=== PATIENT | female | born 1975 | race Two or more races ===

== ENCOUNTER 2016-09-07 00:37 | Outpatient (CLI) | payer SELFPAY ==
[2016-09-07 05:58] LABS: DAU SCREEN DISCLAIMER
[2016-09-07 06:15] LABS: HIV 1&2 ANTIBODY SCREEN Nonreactive (Nonreactive); HIV-1 p24 ANTIGEN Nonreactive (Nonreactive)
== END 2016-09-07 03:10 | disposition home or self-care (01) ==
LOC: LDOP 00:37
PROVIDERS: ATTEND Student in an Organized Health Care Education/Training Program
DX: O09.523 Supervision of elderly multigravida, third trimester (principal); O26.893 Other specified pregnancy related conditions, third trimester; R10.9 Unspecified abdominal pain; Z3A.39 39 weeks gestation of pregnancy
CPT/HCPCS: 36415; 59025; 76815; 80307; 81001; 85025; 86592; 86703; 86762; 86850; 86900; 87081; 87086; 87340; 87899; 99201; G0435; G0463

== ENCOUNTER 2016-09-08 10:03 | Inpatient (IN) | payer SELFPAY ==
[~2016-09-08] VITALS: Ht 182.9 cm; Wt 72.7 kg
[2016-09-08 10:00] VITALS: BP 128/87
[2016-09-08] MEDS ORDERED: LACTATED RINGERS 1,000 ML IV SCH (10:04)
[2016-09-08] MEDS ORDERED: OXYTOCIN 30U/ 0.9% NaCL 500ML 500 ML IV ONE (10:04)
[2016-09-08 10:23] LABS: DAU SCREEN DISCLAIMER
[2016-09-08] MEDS ORDERED: MISOPROSTOL 200 MCG TABLET ONE (10:28)
[2016-09-08] MEDS ORDERED: OXYTOCIN 30U/ 0.9% NaCL 500ML 500 ML ONE (10:28)
[2016-09-08] MEDS ORDERED: NEWBORN KIT ONE (10:28)
[2016-09-08] MEDS ORDERED: LIDOCAINE 1%, 20ML ONE (10:28)
[2016-09-08] MEDS ORDERED: FENTANYL PF 100 MCG/2ML IV PRN (10:30)
[2016-09-08] MEDS ORDERED: FENTANYL PF 100 MCG/2ML IVPush PRN (10:30)
[2016-09-08] MEDS: OXYTOCIN 30U/ 0.9% NaCL 500ML 500 ML IV SCH ×4 (11:02→15:29)
[2016-09-08] MEDS ORDERED: DOCUSATE 100 MG CAPSULE PO PRN (11:30)
[2016-09-08] MEDS ORDERED: OXYcodone IR 5MG TABLET PO PRN (11:30)
[2016-09-08] MEDS ORDERED: RHOGAM FROM BLOOD BANK 1 NOTE EA IM ONE (11:30)
[2016-09-08] MEDS ORDERED: MEASLES,MUMPS&RUBELLA VACC/PF 0.5 ML SQ PRN (11:30)
[2016-09-08] MEDS ORDERED: MISOPROSTOL 200 MCG TABLET PR PRN (11:30)
[2016-09-08] MEDS ORDERED: ONDANSETRON 2MG/ML, 2ML IV PRN (11:30)
[2016-09-08] MEDS ORDERED: PLEASE ENTER HEIGHT AND WEIGHT MC SCH (11:30)
[2016-09-08 13:05] VITALS: BP 124/86
[2016-09-08] MEDS: IBUPROFEN 600 MG TABLET PO PRN ×2 (14:51→21:35)
[2016-09-08 16:00] VITALS: BP 122/72
[2016-09-08 20:10] VITALS: BP 102/66
[2016-09-09 00:20] VITALS: BP 122/82
[2016-09-09] MEDS: IBUPROFEN 600 MG TABLET PO PRN (04:58)
[2016-09-09 08:00] VITALS: BP 107/71
[2016-09-09] MEDS ORDERED: PRENATAL VIT/IRON/FA 1 EACH TABLET PO SCH (09:00)
[2016-09-09 19:45] VITALS: BP 114/74
[2016-09-09] MEDS ORDERED: DIPH,PERTUSS(ACELL),TET VAC/PF NC IM-VACC ONE (21:00)
[2016-09-10 06:35] VITALS: BP 118/73
[2016-09-10] MEDS ORDERED: IBUP-1222 PO (10:36)
[2016-09-10] MEDS ORDERED: PREN-1 PO (10:37)
== END 2016-09-10 19:00 | disposition home or self-care (01) | DRG 775 ==
LOC: LDIP 10:03 → 2NW 13:10
PROVIDERS: ADMIT Student in an Organized Health Care Education/Training Program; ATTEND Student in an Organized Health Care Education/Training Program
PROC: 10E0XZZ Delivery of Products of Conception, External Approach (ICD-10-PCS; principal; 2016-09-08)
DX: O69.2XX0 Labor and delivery complicated by other cord entanglement, with compression, not applicable or unspecified (principal); O70.0 First degree perineal laceration during delivery; Z37.0 Single live birth; Z3A.39 39 weeks gestation of pregnancy; Z23 Encounter for immunization
CPT/HCPCS: 36415; 80307; 85025; 86850; 86900; 90715; J2590; J7120